=== PATIENT | female | born 1940 | race Caucasian/White ===

== ENCOUNTER 2016-12-22 12:28 | Day surgery (SDC) | payer OTHER ==
[2016-12-17 13:35] LABS: HEMATOCRIT 44.3 % (36.0-48.0); HEMOGLOBIN 13.9 g/dL (12.0-16.0)
[2016-12-17 14:07] LABS: BUN (BLOOD UREA NITROGEN) 19 MG/DL (6-23); CALCIUM, SERUM 8.9 MG/DL (8.5-10.4); CHLORIDE, SERUM 107 MMOL/L (96-112); CO2 (CARBON DIOXIDE) 31 MMOL/L (24-34); CREATININE 1.12 MG/DL (0.55-1.02); GFR AFRICAN AMERICAN 56 ML/MIN (>=60); GFR NON AFRICAN AMERICAN 48 ML/MIN (>=60); GLUCOSE, SERUM 87 MG/DL (60-99); POTASSIUM, SERUM 3.9 MMOL/L (3.5-5.3); SODIUM, SERUM 145 MMOL/L (135-148)
[~2016-12-22 12:28] MED LIST: ARIMIDEX1 PO; ATEN25 PO; LOTE40 PO
== END 2016-12-22 23:59 | disposition home or self-care (01) ==
LOC: SDC 12:28
PROVIDERS: Otolaryngology
DX: D11.0 Benign neoplasm of parotid gland (principal); Z53.9 Procedure and treatment not carried out, unspecified reason; I10 Essential (primary) hypertension; I48.91 Unspecified atrial fibrillation
CPT/HCPCS: 80048; 85014; 85018; 93005; 94640; A9270-GY; J0330; J0690; J3010